=== PATIENT | female | born 1965 | race Caucasian/White ===

== ENCOUNTER 2018-12-08 06:45 | Emergency (ER) | payer BC, SELFPAY ==
[2018-12-08 06:52] VITALS: BP 144/94; PULSE 71; RESP 16; TEMP 36.3; O2SAT 99
[2018-12-08 08:41] LABS: Abs Immature Grans 0.01 k/cumm (0.0-0.09); Absolute Basophil Count 0.04 k/cumm (0.0-0.2); Absolute Eosinophil Count 0.23 k/cumm (0.0-0.7); Absolute Lymphocyte Count 3.17 k/cumm (1.2-3.4); Absolute Monocyte Count 0.45 k/cumm (0.11-0.7); Absolute Neutrophil Count 4.14 k/cumm (1.2-6.7); Basophils % 0.5; Eosinophils % 2.9; HCT 40.8 % (36.0-46.0); HGB 13.5 g/dL (12.0-15.5); Immature Grans % 0.1; Lymphocytes % 39.4; Mean Corp. HGB Concentration 33.1 g/dL (32.0-36.0); Mean Corpuscular Hemoglobin 28.7 pg (27.0-33.0); Mean Corpuscular Volume 86.8 fL (80-95); Monocytes % 5.6; Neutrophils % 51.5; Platelet Count 249 x1000/uL (130-400); RBC Distribution Width 14.2 % (11.7-14.6); White Blood Cell Count 8.04 k/cumm (4.4-10.8)
[2018-12-08] MEDS: methylPREDNISolone SUCC 125 MG VIAL IVP (08:45)
[2018-12-08 08:48] LABS: ALT 30 U/L (12-78); AST 15 U/L (15-37); Albumin 3.7 g/dL (3.4-5.0); Alkaline Phosphatase 108 U/L (46-116); Anion Gap 8.7 mmol/L (3-11); BUN 16 mg/dL (7-18); Bilirubin, Total 0.3 mg/dL (0.2-1.0); CO2 28.3 mmol/L (21.0-32.0); CREATININE 0.89 mg/dL (0.55-1.02); Calcium 9.1 mg/dL (8.5-10.1); Chloride 102 mmol/L (98-107); Glucose 102 mg/dL (70-100); Potassium 3.8 mmol/L (3.5-5.1); Sodium 139 mmol/L (136-145); Total Protein 7.8 g/dL (6.4-8.2)
[2018-12-08] MEDS: diphenhydrAMINE 50 MG/ML VIAL IVP (09:00)
[2018-12-08] MEDS: Normal Saline 100 ML 200 ML (09:00)
--- NOTE | 2018-12-08 09:17 | ED.GENADUL_ITS ---
Discharge Plan Disposition Patient Disposition: HOME Condition: Improving Discharge Details Chief Complaint: Sorethroat Clinical Impression: Sensation of swollen throat Primary Care Provider: Jennifer,Local ED Provider: Timoteo May Home Meds and New Rx's Prescriptions: New hydrochlorothiazide 12.5 mg tablet 12.5 mg PO DAILY Qty: 30 RF: 0 Continued cetirizine [Zyrtec] 10 mg Tablet 1 mg PO PRNRF: 0 Discontinued lisinopril 20 mg Tablet 20 mg PO DAILY RF: 0 Discharge Instructions Instructions: Angioedema (ED) Additional Instructions: Return immediately to the emergency department for any new or worsening symptoms, difficulty breathing, difficulty swallowing. Otherwise please start your new blood pressure medicine and stop lisinopril immediately. Follow-up with your primary care provider when you return home for reassessment. Referrals: Primary Care Provider [Outside] (Follow-up with your primary care provider when you return home for reassessment of your blood pressure) Discharge Data Discharge Date/Time-TO BE ENTERED AT DEPARTURE: 12/08/18 12:00 Medical Decision Making Patient presenting to the emergency department for chief complaint of throat swelling that started at 3 AM. She states that she is up from [place] and does have history of high blood pressure and allergies but has taken her Zyrtec which made no difference and states that this feels different. Patient states that she feels like there is swelling just to the base of her tongue/back of her throat. Patient denies any fever chills, or cold symptoms. She does state some nasal symptoms but is not stating that this is related to the throat discomfort. Patient is on lisinopril for high blood pressure and has been on this medication for 10 years. Patient denies any chronic cough or other side effects of this medication that she has noted in the past. Patient does state some difficulty swallowing. Patient is phonating well, no trismus, no drooling, able to fully speak in complete sentences and no signs of respiratory distress. Physical exam does show a large tongue but patient denies any specific swelling of her tongue and lips appeared normal physical exam is otherwise unremarkable. Concern for peritonsillar retropharyngeal abscess, angioedema related to ROGELIO inhibitor, or seasonal allergies with odd presentation. Plan to check labs, establish IV access, and do CT imaging of the neck but at this time I do not feel that there is a emergent airway compromise. Pending results patient given Benadryl and Solu-Medrol. Review of labs is unremarkable with no leukocytosis and otherwise nondiagnostic, review of CT imaging along with radiologist interpretation shows the following FINDINGS: Nasopharynx: Normal. Oropharynx: Normal. No significant tonsillar enlargement or abscess. Hypopharynx: Normal. Larynx: Normal. Normal epiglottis. Retropharyngeal space: Normal. Submandibular/Parotid glands: Normal. Glands are normal in size. Thyroid: Normal. No enlarged or calcified nodules. Lymph nodes: Normal. No lymphadenopathy. Trachea: Visualized trachea is unremarkable. Lungs: Normal as visualized. Vasculature: No acute findings. Bones/joints: Degenerative disc disease at C5-6 with disc osteophyte formation. Soft tissues: Normal. No significant soft tissue swelling. IMPRESSION: 1. Negative for tonsillar abscess. 2. Degenerative disc disease at C5-6 with disc osteophyte formation. Patient reassessed and states improvement of symptoms. Patient tolerated p.o. intake. Patient in the emergency department for 5 hours and had no worsening of symptoms and continued to only state improvement. Did offer further observation of patient and possible admission for concern of ACEI angioedema. Given the patient is improving she did state she would prefer to go home. Return precautions were clearly discussed with patient and patient was able to verbalize understanding of these. During discussion of discharge patient then did note that she did have some heartburn last night did not know if this is a contorting factor. I feel that this may be a possibility but again would not be emergent at this time. Patient was informed to stop lisinopril was placed upon low-dose hydrochlorothiazide pending her returning home to [place] and reassessment by her primary care provider. After discussion of diagnosis and plan of care patient has no further needs, questions, or concerns and states clear understanding to return to the emergency department for any worsening symptoms. HPI General Mode of arrival: ambulatory . Date/Time Provider Initiated Documentation: 12/08/18 07:58 . Limitations to Documentation: no limitations . Information obtained by: patient and RN notes reviewed . History of Present Illness 53 year old F presents to the emergency department with the chief complaint of Throat swelling, Quality is described as other (Denies pain), and is localized to the mouth. Patient neck. Patient started experiencing this hour(s) (5) and it has been constant. No relieving factors improve symptom(s), No exacerbating factors reported . Patient notes no other symptoms.. Patient did receive the following treatments prior to arrival, none Related Data Home Medications Medication Instructions Recorded Confirmed cetirizine [Zyrtec] 1 mg PO PRN 12/08/18 hydrochlorothiazide 12.5 mg PO DAILY #30 tab 12/08/18 Previous Rx's Medication Instructions Recorded hydrochlorothiazide 12.5 mg PO DAILY #30 tab 12/08/18 Allergies Allergy/AdvReac Type Severity Reaction Status Date / Time environmental Allergy Uncoded 12/08/18 06:55 General Stated Complaint: Sorethroat FARHAD: 3 Review of Systems Constitutional Denies chills, Denies fever(s), Denies headache(s) and Reports malaise ENT Denies change in voice, Denies dysphagia, Denies otalgia, Denies headache(s), Denies hoarseness, Denies lip swelling, Denies mouth lesions, Reports nasal congestion, Reports odynophagia, Denies sore throat, Reports throat swelling and Denies tongue swelling Cardiovascular Denies chest pain Respiratory Denies chest congestion and Denies cough Gastrointestinal Denies dysphagia and Reports odynophagia Neurologic Denies headache(s) Allergic/Immunologic Denies lip swelling, Reports throat swelling and Denies tongue swelling [facility] Social History Smoking/Tobacco Use Status: Never Substance use type: does not use Exam Const General: cooperative, healthy appearing, comfortable, no acute distress and not ill appearing Orientation: alert, awake and oriented x3 HENMT Head: normal to inspection and normocephalic Ears: hearing grossly normal bilaterally, external ears normal, TM's normal bilaterally and mastoids normal General nose exam: external nose normal and nares normal Face and sinus: normal facial exam and sinuses nontender Mouth: oral mucosae normal, lip normal, tongue normal (large ), no audible dysphonia, no drooling and no trismus Throat: uvula midline and no peritonsillar masses Neck Neck: normal visual inspection, full ROM, no lymphadenopathy and no meningeal signs Resp Effort & Inspection: normal respiratory effort, able to speak in complete sentences and no stridor Auscultation: clear to auscultation bilaterally Cardio Rate: regular rate Rhythm: regular rhythm Heart Sounds: S1 normal and S2 normal Skin General skin exam: no rashes or lesions noted Course Vital Signs Temperature 36.3 C L 12/08/18 06:52 Pulse 71 12/08/18 06:52 Respiratory Rate 16 12/08/18 06:52 Blood Pressure 144/94 H 12/08/18 06:52 Pulse Oximetry 99 12/08/18 06:52 Temperature 36.3 C L 12/08/18 06:52 Temperature Source Skin 12/08/18 06:52 Pulse 71 12/08/18 06:52 Respiratory Rate 16 12/08/18 06:52 Respiratory Effort Non-Labored 12/08/18 06:52 Blood Pressure 144/94 H 12/08/18 06:52 Blood Pressure Position Standing 12/08/18 06:52 Pulse Oximetry 99 12/08/18 06:52 Oxygen Delivery Method Room Air 12/08/18 06:52 Oxygen Flow Rate 0 12/08/18 06:52 Pain Level 3 12/08/18 06:52 Lab/Test Results Lab/Test Results: Laboratory Tests Range/Units 12/08/18 12/08/18 08:28 08:28 WBC (4.4-10.8) k/cumm 8.04 RBC (4.00-5.20) m/cumm 4.70 Hgb (12.0-15.5) g/dL 13.5 Hct (36.0-46.0) % 40.8 MCV (80-95) fL 86.8 MCH (27.0-33.0) pg 28.7 MCHC (32.0-36.0) g/dL 33.1 RDW (11.7-14.6) % 14.2 Plt Count (130-400) x1000/uL 249 MPV (8.0-11.0) fL 11.0 Immature Gran % 0.1 Neutrophils % 51.5 Lymphocytes % 39.4 Monocytes % 5.6 Eosinophils % 2.9 Basophils % 0.5 Absolute Neutrophils (1.2-6.7) k/cumm 4.14 Absolute Lymphocytes (1.2-3.4) k/cumm 3.17 Absolute Monocytes (0.11-0.7) k/cumm 0.45 Absolute Eosinophils (0.0-0.7) k/cumm 0.23 Absolute Basophils (0.0-0.2) k/cumm 0.04 Sodium (136-145) mmol/L 139 Potassium (3.5-5.1) mmol/L 3.8 Chloride (98-107) mmol/L 102 Carbon Dioxide (21.0-32.0) mmol/L 28.3 Anion Gap (3-11) mmol/L 8.7 BUN (7-18) mg/dL 16 Creatinine (0.55-1.02) mg/dL 0.89 Estimated GFR/1.73 m2 (mL/min/1.73m2) >= 60.00 Glucose (70-100) mg/dL 102 H Calcium (8.5-10.1) mg/dL 9.1 Total Bilirubin (0.2-1.0) mg/dL 0.3 AST (15-37) U/L 15 ALT (12-78) U/L 30 Alkaline Phosphatase (46-116) U/L 108 Total Protein (6.4-8.2) g/dL 7.8 Albumin (3.4-5.0) g/dL 3.7
--- NOTE | 2018-12-08 09:20 | DI.CT_ITS ---
SYMPTOM/DIAGNOSIS: THROAT SWELLING NECK CT: Post contrast exam was performed. There is no evidence of mass, adenopathy or abscess. No tonsillar enlargement is seen. The submandibular,. parotid and thyroid glands are unremarkable. The lung apices appear clear. Degenerative disc changes are seen at C 5-6. The epiglottis appears normal. The sinuses appear clear. The mastoid air cells are clear. IMPRESSION: Negative CT of the neck. No evidence of tonsillar enlargement or abscess.
[2018-12-08] MEDS: Omnipaque 350 MG/ML 100 ML BTL IJ (09:23)
--- NOTE | 2018-12-08 10:20 | DI.VRAD_ITS ---
EXAM: CT Neck With Contrast EXAM DATE/TIME: 12/08/2018 8:30 AM CLINICAL HISTORY: 53 years old, female; Throat pain; Patient HX: Pain in back of throat, no tenderness or stiffness. TECHNIQUE: Imaging protocol: Axial computed tomography images of the neck with intravenous contrast. Coronal and sagittal reformatted images were created and reviewed. Radiation optimization: All CT scans at this facility use at least one of these dose optimization techniques: automated exposure control; mA and/or kV adjustment per patient size (includes targeted exams where dose is matched to clinical indication); or iterative reconstruction. Contrast material: OMNIPAQUE 350; Contrast volume: 100 ml; Contrast route: IV; COMPARISON: No relevant prior studies available. FINDINGS: Nasopharynx: Normal. Oropharynx: Normal. No significant tonsillar enlargement or abscess. Hypopharynx: Normal. Larynx: Normal. Normal epiglottis. Retropharyngeal space: Normal. Submandibular/Parotid glands: Normal. Glands are normal in size. Thyroid: Normal. No enlarged or calcified nodules. Lymph nodes: Normal. No lymphadenopathy. Trachea: Visualized trachea is unremarkable. Lungs: Normal as visualized. Vasculature: No acute findings. Bones/joints: Degenerative disc disease at C5-6 with disc osteophyte formation. Soft tissues: Normal. No significant soft tissue swelling. IMPRESSION: 1. Negative for tonsillar abscess. 2. Degenerative disc disease at C5-6 with disc osteophyte formation. Dictated and Authenticated by: Paris Vidales MD. Ordering:TERRY Mahmood MD
== END 2018-12-08 12:00 | disposition home or self-care (01) ==
PROVIDERS: Emergency Provider Nurse Practitioner Family
DX: R22.0 Localized swelling, mass and lump, head (principal); I10 Essential (primary) hypertension
CPT/HCPCS: 36415; 70491; 80053; 96374; 96375; 99284; 85025; J1200; J2930; J3490